=== PATIENT | female | born 1975 | race Two or more races ===

== ENCOUNTER 2021-09-28 13:48 | Emergency (ER) | payer MEDICAID, OTHER ==
[~2021-09-28] VITALS: Ht 172.7 cm; Wt 77.1 kg
[2021-09-28 15:06] LABS: Basophils # (auto) 0.1 10 ^3/uL (0-0.2); Eosinophils # (auto) 0.2 10 ^3/uL (0-0.8); Hematocrit 40.4 % (36.0-46.0); Lymphocytes # (auto) 2.5 10 ^3/uL (0.4-5.4); Monocytes # (auto) 0.6 10 ^3/uL (0-1.3); Neutrophils # (auto) 4.8 10 ^3/uL (1.6-8.6); Nucleated Red Blood Cells % 0.1 %; Red Cell Distribution Width 13.6 % (11.8-14.3); White Blood Cell 8.2 10^3/uL (4.4-10.8)
[2021-09-28 15:08] LABS: Basophils % (auto) 1.4 % (0.0-2.0); Eosinophils % (auto) 2.8 % (0.0-7.0); Hemoglobin 14.2 g/dL (12.2-16.2); Lymphocytes % (auto) 30.2 % (10.0-50.0); Mean Corpuscular Hemoglobin 29.5 pg (28.0-32.0); Mean Corpuscular Hgb Conc. 35.1 g/dL (32.0-36.0); Monocytes % (auto) 6.9 % (0.0-12.0); Neutrophils % (auto) 58.7 % (37.0-80.0); Red Blood Cells 4.81 10^6/uL (4.0-5.20)
[2021-09-28 15:29] LABS: Albumin 3.8 g/dL (3.4-5.0); Calcium 8.9 mg/dL (8.5-10.1); Magnesium 2.4 mg/dL (1.6-2.6); Potassium 3.8 mmol/L (3.5-5.1)
[2021-09-28 15:33] LABS: BUN/Creatinine Ratio 12.2; Bilirubin, Total 0.5 mg/dL (0.2-1.0); Total Protein 8.2 g/dL (6.4-8.2)
[2021-09-28 21:40] LABS: Urine Bacteria FEW /hpf (None Seen); Urine Blood Negative /uL (Negative); Urine Specific Gravity 1.014 (1.001-1.035); Urine WBC 4 /hpf (0 - 5)
[2021-09-29] MEDS ORDERED: HYDROcodone-ACET 5/325MG TAB PO ONE (00:45)
[2021-09-29 02:28] VITALS: BP 128/84
[2021-09-29] MEDS ORDERED: LEVO500T31 PO (03:19)
[2021-09-29] MEDS ORDERED: PANT40TA2 PO (03:19)
== END 2021-09-28 23:18 | disposition home or self-care (01) ==
LOC: ER 13:48
DX: R10.9 Unspecified abdominal pain (principal); Z88.8 Allergy status to other drugs, medicaments and biological substances
CPT/HCPCS: 36415; 80053; 81001; 83735; 85025; 93005

== ENCOUNTER 2022-06-23 15:29 | Emergency (ER) | payer MEDICAID ==
[~2022-06-23] VITALS: Ht 170.2 cm; Wt 84.0 kg
[~2022-06-23 15:29] MED LIST: LEVO500T31 PO; PANT40TA2 PO
[2022-06-23 17:12] LABS: Basophils # (auto) 0.1 10 ^3/uL (0-0.2); Basophils % (auto) 1.4 % (0.0-2.0); Eosinophils # (auto) 0.4 10 ^3/uL (0-0.8); Eosinophils % (auto) 5.3 % (0.0-7.0); Hematocrit 43.6 % (36.0-46.0); Hemoglobin 14.6 g/dL (12.2-16.2); Lymphocytes # (auto) 2.5 10 ^3/uL (0.4-5.4); Lymphocytes % (auto) 29.5 % (10.0-50.0); Mean Corpuscular Hgb Conc. 33.5 g/dL (32.0-36.0); Mean Corpuscular Volume 86.6 fL (80.0-100.0); Monocytes # (auto) 0.5 10 ^3/uL (0-1.3); Neutrophils # (auto) 4.8 10 ^3/uL (1.6-8.6); Neutrophils % (auto) 57.8 % (37.0-80.0); Nucleated Red Blood Cells % 0.1 %; Red Blood Cells 5.04 10^6/uL (4.0-5.20); Red Cell Distribution Width 13.2 % (11.8-14.3); White Blood Cell 8.4 10^3/uL (4.4-10.8)
[2022-06-23 17:26] LABS: Albumin 3.9 g/dL (3.4-5.0); Calcium 9.1 mg/dL (8.5-10.1); Potassium 3.9 mmol/L (3.5-5.1)
[2022-06-23 17:29] LABS: Bilirubin, Total 0.4 mg/dL (0.2-1.0); Total Protein 7.5 g/dL (6.4-8.2)
[2022-06-23 18:45] VITALS: BP 126/88
== END 2022-06-23 18:47 | disposition home or self-care (01) ==
LOC: ER 15:29
DX: R42 Dizziness and giddiness (principal); Z88.8 Allergy status to other drugs, medicaments and biological substances; Z98.890 Other specified postprocedural states
CPT/HCPCS: 36415; 70450; 80053; 83735; 84484; 85025; 93005

== ENCOUNTER 2022-10-30 19:07 | Emergency (ER) | payer MEDICAID ==
[~2022-10-30] VITALS: Ht 172.7 cm; Wt 81.8 kg
[2022-10-30 21:20] LABS: Basophils # (auto) 0.1 10 ^3/uL (0-0.2); Eosinophils # (auto) 0.2 10 ^3/uL (0-0.8); Eosinophils % (auto) 1.8 % (0.0-7.0); Hematocrit 45.2 % (36.0-46.0); Hemoglobin 15.6 g/dL (12.2-16.2); Lymphocytes # (auto) 2.7 10 ^3/uL (0.4-5.4); Mean Corpuscular Hemoglobin 30.1 pg (28.0-32.0); Mean Corpuscular Hgb Conc. 34.6 g/dL (32.0-36.0); Mean Corpuscular Volume 87.1 fL (80.0-100.0); Monocytes # (auto) 0.6 10 ^3/uL (0-1.3); Monocytes % (auto) 6.6 % (0.0-12.0); Neutrophils # (auto) 5.5 10 ^3/uL (1.6-8.6); Neutrophils % (auto) 60.6 % (37.0-80.0); Nucleated Red Blood Cells % 0.1 %; Red Blood Cells 5.19 10^6/uL (4.0-5.20); Red Cell Distribution Width 14.1 % (11.8-14.3); White Blood Cell 9.2 10^3/uL (4.4-10.8)
[2022-10-30 21:35] LABS: Albumin 3.7 g/dL (3.4-5.0); Calcium 9.1 mg/dL (8.5-10.1); Potassium 3.7 mmol/L (3.5-5.1)
[2022-10-30 21:37] LABS: BUN/Creatinine Ratio 10.6 (10.0-20.0)
[2022-10-30 21:40] LABS: Bilirubin, Total 0.6 mg/dL (0.2-1.0); Total Protein 7.8 g/dL (6.4-8.2)
[2022-10-30 22:22] LABS: Urine Bacteria NONE SEEN /hpf (None Seen); Urine Blood Negative /uL (Negative); Urine Specific Gravity 1.014 (1.001-1.035); Urine WBC 1 /hpf (0 - 5)
[2022-10-30 22:24] VITALS: BP 147/76
[2022-10-30] MEDS ORDERED: HYDR-4798 PO (23:05)
[2022-10-30] MEDS ORDERED: HYDROcodone-ACET 10/325MG TAB PO ONE (23:15)
[2022-10-30] MEDS ORDERED: ONDANSETRON ODT 4 MG TAB PO ONE (23:15)
== END 2022-10-30 23:41 | disposition home or self-care (01) ==
LOC: ER 19:10
DX: S93.402A Sprain of unspecified ligament of left ankle, initial encounter (principal); R51.9 Headache, unspecified; R42 Dizziness and giddiness; Z98.51 Tubal ligation status; W18.39XA Other fall on same level, initial encounter; Y93.89 Activity, other specified; Y92.89 Other specified places as the place of occurrence of the external cause; Y99.8 Other external cause status
CPT/HCPCS: 36415; 70450; 73600; 80053; 81001; 84484; 85025; 93005; 99285; Q0162

== ENCOUNTER 2023-12-21 23:22 | Emergency (ER) | payer MEDICAID ==
[~2023-12-21] VITALS: Ht 170.2 cm; Wt 89.6 kg
[~2023-12-21 23:22] MED LIST changes: +HYDR-4798 PO
[2023-12-22 01:13] LABS: Basophils # (auto) 0.1 10 ^3/uL (0-0.2); Eosinophils # (auto) 0.2 10 ^3/uL (0-0.8); Hemoglobin 14.9 g/dL (12.2-16.2); Mean Corpuscular Hemoglobin 30.3 pg (28.0-32.0); Monocytes # (auto) 0.9 10 ^3/uL (0-1.3)
[2023-12-22 01:15] LABS: Basophils % (auto) 1.1 % (0.0-2.0); Eosinophils % (auto) 1.7 % (0.0-7.0); Hematocrit 43.3 % (36.0-46.0); Lymphocytes # (auto) 2.6 10 ^3/uL (0.4-5.4); Lymphocytes % (auto) 24.1 % (10.0-50.0); Mean Corpuscular Hgb Conc. 34.4 g/dL (32.0-36.0); Mean Corpuscular Volume 88.1 fL (80.0-100.0); Monocytes % (auto) 8.3 % (0.0-12.0); Neutrophils # (auto) 7.1 10 ^3/uL (1.6-8.6); Neutrophils % (auto) 64.8 % (37.0-80.0); Red Blood Cells 4.91 10^6/uL (4.0-5.20); White Blood Cell 10.9 10^3/uL (4.4-10.8)
[2023-12-22 01:32] LABS: Alanine Aminotransferase 16 U/L (7-40); Alkaline Phosphatase 76 U/L (46-116); Anion Gap 9 (5-15); Aspartate Aminotransferase 11 U/L (13-40); BUN/Creatinine Ratio 7.5 (10.0-20.0); Blood Urea Nitrogen 7 mg/dL (9-23); Calcium 9.7 mg/dL (8.7-10.4); Carbon Dioxide 23 mmol/L (20-30); Chloride 106 mmol/L (98-107); Glucose 102 mg/dL (74-106); Potassium 3.9 mmol/L (3.5-5.1); Sodium 138 mmol/L (136-145)
[2023-12-22 01:33] LABS: Albumin 4.3 g/dL (3.2-4.8); Bilirubin, Total 0.3 mg/dL (0.2-1.0); Total Protein 7.3 g/dL (5.7-8.2)
[2023-12-22 03:26] VITALS: PULSE 65; RESP 18; O2SAT 96
[2023-12-22] MEDS: HYDROcodone-ACET 5/325MG TAB PO ONE (03:32)
[2023-12-22 03:53] LABS: Urine Blood Negative /uL (Negative); Urine Clarity Turbid (Clear); Urine Color Light-Yellow (Yellow); Urine Protein, UAD Negative (Negative); Urine Specific Gravity 1.013 (1.001-1.035); Urine Urobilinogen Normal (Negative); Urine pH 6.5 (5.0-9.0)
[2023-12-22] MEDS ORDERED: FURO1TAB33 GT (04:41)
[2023-12-22] MEDS ORDERED: CEPH250C PO (04:41)
[2023-12-22] MEDS: FUROSEMIDE 20 MG TAB PO ONE (05:05)
[2023-12-22 05:08] VITALS: BP 150/79; PULSE 75; RESP 14; TEMP 97.8; O2SAT 98
== END 2023-12-22 05:08 | disposition home or self-care (01) ==
LOC: ER 23:22
DX: R60.0 Localized edema (principal); N39.0 Urinary tract infection, site not specified; F41.9 Anxiety disorder, unspecified; F32.9 Major depressive disorder, single episode, unspecified; Z98.890 Other specified postprocedural states; Z88.8 Allergy status to other drugs, medicaments and biological substances; Z79.899 Other long term (current) drug therapy
CPT/HCPCS: 36415; 71045; 80053; 81003; 83880; 84484; 85025

== ENCOUNTER 2024-09-04 12:00 | Emergency (ER) | payer MEDICAID ==
[~2024-09-04] VITALS: Ht 172.7 cm; Wt 80.0 kg
[~2024-09-04 12:00] MED LIST changes: +CEPH250C PO; +FURO1TAB33 GT
--- NOTE | 2024-09-04 12:18 | ED.PDOC ---
History of Present Illness HPI Comments 49 y/o obese F, with a history of anxiety, bipolar disorder, unknown "blood cancer," depression, and hemochromatosis, and polycythemia vera, presents with 1x week c/o body swelling, dizziness, chest pressure, and shortness of breath. Patient reports having similar symptoms in the past when her "platelets was over '1 million'." She denies any nausea, vomiting, urinary symptoms, fever, chills, or other associated symptoms at this time. States her symptoms do not change with exertion. States that she was currently living in her car and thinks that is the cause of all her symptoms and issues. Requesting a meal. Time Seen by MD: 12:15 Primary Care Provider: NONE Reviewed Notes: Nurses Notes, Medications, Allergies Allergies: Coded Allergies: Ketorolac Tromethamine (Verified Allergy, Unknown, 09/28/21) Tramadol (Verified Allergy, Unknown, 09/28/21) Home Meds Active Scripts Furosemide (Lasix) 20 Mg Tb, 20 MG GT DAILY for 3 Days, #3 TAB Prov:CLAY ADAMS MD 12/22/23 Cephalexin (KEFLEX CAPSULE) 250 Mg Cp, 500 MG PO TID for 7 Days, #21 CAP Prov:CLAY ADAMS MD 12/22/23 Hydrocodone-Acetaminophen (Hydrocodone Bitartrate/AC 10-325 mg) 1 Tab Tab, 1 TAB PO TID PRN for 3 Days, #9 TAB Prov:RENEE DODD DO 10/30/22 Levofloxacin (Levaquin) 500 Mg Tab, 500 MG PO DAILY, #7 TAB Prov:VEGA CORDON MD 09/29/21 Pantoprazole Sodium Sesquihydr (Protonix) 40 Mg Tab, 40 MG PO DAILY, #30 TAB 0 Refills Prov:VEGA CORDON MD 09/29/21 Information Source: Patient Mode of Arrival: Ambulatory Severity: Moderate Timing: Weeks Duration: Since onset Prehospital treatment: None Past Medical History PAST MEDICAL HISTORY: Anxiety, Cancer (unknown "blood cancer" ), Depression Past Medical History (Other): bipolar disorder hemochromatosis polycythemia vera Surgical History: BTL, ASSISTANT IMPORT MANAGER History: No Pertinent ASSISTANT IMPORT MANAGER History Family History Family History: Reviewed,noncontributory to illness, No family hx of Cancer Social History Smoker: Non-Smoker Alcohol: Denies ETOH Use Drugs: Denies Drug Use Lives In: Home All Other Systems: Reviewed and Negative (Comprehensive systems review obtained and negative except for what is stated in the HPI.) Physical Exam General Appearance: No Apparent Distress, Normal HEENT: Normal ENT Inspection, Pharynx Normal, TMs Normal Neck: Full Range of Motion, Non-Tender, Normal, Normal Inspection Respiratory: Chest Non-Tender, Lungs Clear, No Accessory Muscle Use, No Respiratory Distress, Normal Breath Sounds Cardiovascular: No Edema, No JVD, No Murmur, No Gallop, Normal Peripheral Pu lses, Regular Rate/Rhythm Breast Exam: Deferred Gastrointestinal: No Organomegaly, Non Tender, No Pulsatile Mass, Normal Bowel Sounds, Soft Genitalia: Deferred Pelvic: Deferred Rectal: Deferred Extremities: No calf tenderness, Normal capillary refill, Normal inspection, Normal range of motion, Non-tender, Other (1+ bilateral lower extremity edema, symmetric) Musculoskeletal : Apperance: Normal Neurologic: Alert, computer game designer II-XII nml as Tested, No Motor Deficits, Normal Affect, Normal Mood, No Sensory Deficits Cerebellar Function: NOT DONE Reflexes: NOT DONE Skin: Dry, Normal Color, Warm Lymphatic: No Adenopathy Was a procedure done? Was a procedure done?: No EKG EKG : Pulse Rate (adult): 71 [place]: Normal Cardiac Rhythm: NSR Block: None Hypertrophy: None ST: Normal Differential Dx Considerations may include: Viral illness, volume overload, MS, PE, ACS, anxiety, angina, electrolyte imbalance, UTI, URI, PNA X-Ray, Labs, Meds, VS Vital Signs Date Time Temp Pulse Resp B/P (MAP) Pulse Ox O2 Delivery O2 Flow Rate FiO2 09/04/24 12:41 71 09/04/24 12:31 71 09/04/24 12:21 98.4 86 20 120/63 (82) 99 98.4 Lab Test 09/04/24 12:45 09/04/24 12:38 09/04/24 12:17 Range/Units White Blood Count 11.3 H 4.4-10.8 10^3/uL Red Blood Count 4.75 4.0-5.20 10^6/uL Hemoglobin 12.8 12.2-16.2 g/dL Hematocrit 38.3 36.0-46.0 % Mean Corpuscular Volume 80.7 80.0-100.0 fL Mean Corpuscular Hemoglobin 27.0 L 28.0-32.0 pg Mean Corpuscular Hemoglobin Concent 33.5 32.0-36.0 g/dL Red Cell Distribution Width 15.4 H 11.8-14.3 % Platelet Count 463 H 140-450 10^3/uL Mean Platelet Volume 8.0 6.9-10.8 fL Neutrophils (%) (Auto) 66.3 37.0-80.0 % Lymphocytes (%) (Auto) 22.2 10.0-50.0 % Monocytes (%) (Auto) 8.0 0.0-12.0 % Eosinophils (%) (Auto) 2.3 0.0-7.0 % Basophils (%) (Auto) 1.2 0.0-2.0 % Neutrophils # (Auto) 7.5 1.6-8.6 10 ^3/uL Lymphocytes # (Auto) 2.5 0.4-5.4 10 ^3/uL Monocytes # (Auto) 0.9 0-1.3 10 ^3/uL Eosinophils # (Auto) 0.3 0-0.8 10 ^3/uL Basophils # (Auto) 0.1 0-0.2 10 ^3/uL Nucleated Red Blood Cells 0.0 % Sodium Level 139 136-145 mmol/L Potassium Level 3.1 L 3.5-5.1 mmol/L Chloride Level 107 98-107 mmol/L Carbon Dioxide Level 25 20-31 mmol/L Anion Gap 7 5-15 Blood Urea Nitrogen 11 9-23 mg/dL Creatinine 0.77 0.550-1.02 mg/dL Glomerular Filtration Rate Calc 94 >90 mL/min BUN/Creatinine Ratio 14.3 10.0-20.0 Serum Glucose 96 74-106 mg/dL Lactic Acid Level 1.2 0.4-2.0 mmol/L Calcium Level 9.7 8.7-10.4 mg/dL Phosphorus Level 3.5 2.4-5.1 mg/dL Magnesium Level 1.7 1.6-2.6 mg/dL Iron Level 39 L 50-170 ug/dL Total Iron Binding Capacity 344 250-425 ug/dL Percent Iron Saturation 11.3 L 15-50 % Total Bilirubin 0.6 0.2-1.0 mg/dL Direct Bilirubin 0.2 <0.3 mg/dL Aspartate Amino Transferase (AST) 19 13-40 U/L Alanine Aminotransferase (ALT) 17 7-40 U/L Alkaline Phosphatase 86 46-116 U/L Troponin I High Sensitivity < 3 L </=34 ng/L Total Protein 7.3 5.7-8.2 g/dL Albumin 4.5 3.2-4.8 g/dL Lipase 74 H 12-53 U/L Erythrocyte Sedimentation Rate 30 H 0-20 mm/hr Thyroid Stimulating Hormone (TSH) 1.56 0.55-4.78 uIU/mL POC Glucose 128 H 70-106 mg/dl X-Ray, Labs, Meds, VS Comment 49-year-old female with a history of hemochromatosis and polycythemia vera and anxiety as above here today with multiple complaints as per HPI. Vital signs stable, afebrile. Physical exam as above without any significant acute findings aside from 1+ bilateral lower extremity edema that is symmetric. Labs overall notable for mild hypokalemia with a potassium of 3.1 that was repleted with a 40 mEq of oral potassium. Patient also tolerated a small meal while she was in the ER and stated that she felt significantly improved afterwards. Stated that her weakness and overall symptoms such as chest pressure and shortness of breath improved with a meal. Doubt ACS, PE, CHF, acute intra-abdominal process, hyperviscosity syndrome, DVT, or any other significant acute pathology. 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 I provided her with strict return precautions for worsening of symptoms, return of symptoms, or any other new or concerning symptoms. Patient expressed understanding and was discharged in stable condition ambulating with a steady gait in no distress. Images Reviewed?: Images reviewed and evaluated by me Time of 1ST Reevaluation: 12:45 Reevaluation 1ST: Unchanged Time of 2ND Reevaluation: 14:28 Reevaluation 2ND: Resolved (After a meal) Patient Education/Counseling: Diagnosis, Treatment Family Education/Counseling: No Family Present Additional Information Previous medical encounters reviewed: December 21, 2023 encounter for UTI The following tests were ordered, and results were reviewed by me: EKG, iron panel, erythrocyte sedimentary, hepatic panel, lactic acid w/reflex, UA, tro ponin, TSH levels, phosphorus, magnesium, lipase, CBC, BMP, type and screen Additional Information was gathered from interviewing the following independent historians: N/A I reviewed and agreed with the following test results read by other providers: N/A I discussed treatment and results with medical personnel and: Patient Departure 1 Departure Time of Disposition: 15:33 Impression: Primary Impression: Weakness Additional Impressions: History of polycythemia vera History of hemochromatosis Disposition: HOME / SELF CARE / HOMELESS Condition: Stable Critical Care Note Critical Care Time?: No Stability Stability form required: No Heart Score Heart Score: Heart Score Response (Comments) Value History Moderate Suspicious 1 EKG Normal 0 Age 45-64 1 Risk Factors >3 or Hx ASHD 2 Troponin Normal limit 0 Total 4 I personally scribed for JEFFREY KU MD ([email or web address]) on 09/04/24 at 12:18. Electronically submitted by Justen Hernandez ([email or web address]). I personally scribed for JEFFREY KU MD ([email or web address]) on 09/04/24 at 12:33. Electronically submitted by Justen Hernandez ([email or web address]). I personally scribed for JEFFREY KU MD ([email or web address]) on 09/04/24 at 12:41. Electronically submitted by Justen Hernandez ([email or web address]). JEFFREY KU MD Sep 04, 2024 12:18
--- NOTE | 2024-09-04 12:32 | ECG ---
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
[2024-09-04 13:01] LABS: Basophils # (auto) 0.1 10 ^3/uL (0-0.2); Eosinophils # (auto) 0.3 10 ^3/uL (0-0.8); Eosinophils % (auto) 2.3 % (0.0-7.0); Hematocrit 38.3 % (36.0-46.0); Hemoglobin 12.8 g/dL (12.2-16.2); Lymphocytes # (auto) 2.5 10 ^3/uL (0.4-5.4); Monocytes # (auto) 0.9 10 ^3/uL (0-1.3)
[2024-09-04 13:02] LABS: Basophils % (auto) 1.2 % (0.0-2.0); Lymphocytes % (auto) 22.2 % (10.0-50.0); Mean Corpuscular Hgb Conc. 33.5 g/dL (32.0-36.0); Mean Corpuscular Volume 80.7 fL (80.0-100.0); Neutrophils # (auto) 7.5 10 ^3/uL (1.6-8.6); Neutrophils % (auto) 66.3 % (37.0-80.0); Platelet Count (auto) 463 10^3/uL (140-450); Red Blood Cells 4.75 10^6/uL (4.0-5.20); Red Cell Distribution Width 15.4 % (11.8-14.3); White Blood Cell 11.3 10^3/uL (4.4-10.8)
[2024-09-04 13:16] LABS: Magnesium 1.7 mg/dL (1.6-2.6)
[2024-09-04 13:19] LABS: % Iron Saturation 11.3 % (15-50)
[2024-09-04 13:41] LABS: Alanine Aminotransferase 17 U/L (7-40); Albumin 4.5 g/dL (3.2-4.8); Alkaline Phosphatase 86 U/L (46-116); Anion Gap 7 (5-15); Aspartate Aminotransferase 19 U/L (13-40); BUN/Creatinine Ratio 14.3 (10.0-20.0); Bilirubin, Direct 0.2 mg/dL (<0.3); Bilirubin, Total 0.6 mg/dL (0.2-1.0); Blood Urea Nitrogen 11 mg/dL (9-23); Calcium 9.7 mg/dL (8.7-10.4); Carbon Dioxide 25 mmol/L (20-31); Chloride 107 mmol/L (98-107); Glucose 96 mg/dL (74-106); Phosphorus 3.5 mg/dL (2.4-5.1); Sodium 139 mmol/L (136-145); Total Protein 7.3 g/dL (5.7-8.2)
[2024-09-04 13:45] LABS: Potassium 3.1 mmol/L (3.5-5.1)
[2024-09-04 14:36] LABS: Erythrocyte Sedimentation Rate 30 mm/hr (0-20)
[2024-09-04] MEDS: POTASSIUM CHL 20 Meq TABLET PO ONE (16:30)
[2024-09-04 16:33] VITALS: BP 120/79; PULSE 80; RESP 15; TEMP 97.9; O2SAT 99
--- NOTE | 2024-09-08 11:24 | ECG ---
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
== END 2024-09-04 16:35 | disposition home or self-care (01) ==
LOC: ER 12:00
DX: R53.1 Weakness (principal); R42 Dizziness and giddiness; R07.89 Other chest pain; R06.02 Shortness of breath; F41.9 Anxiety disorder, unspecified; F31.9 Bipolar disorder, unspecified; Z98.51 Tubal ligation status; Z98.890 Other specified postprocedural states; Z79.899 Other long term (current) drug therapy; Z88.5 Allergy status to narcotic agent; Z88.8 Allergy status to other drugs, medicaments and biological substances
CPT/HCPCS: 36415; 80048; 80076; 82947; 82962; 83540; 83550; 83605; 83690; 83735; 84100; 84443; 84484; 85025; 85652; 86850; 86900; 86901; 93005